=== PATIENT | male | born 1985 | race Caucasian/White ===

== ENCOUNTER → 2016-11-17 | Outpatient (CLI) | payer OTHER ==
--- NOTE | 2016-11-18 06:13 | PAP/PSG TECHNICIAN REPORT ---
[facility] Invasive Cardiovascular Technologist Polysomnogram Report Study name: None Report date: 11/18/2016 Study date: 11/17/2016 Referring Physician: DR. DONA SPENCER Name: CATIE LEE Interpreting Physician: Avi Lane D.O. Date of : 1985 Invasive Cardiovascular Technologist: RAHEEL Saucedo. Sex: Male Age: 31 StudyType: PSG Weight: 141 lbs Height: 31 years, Height 5' 6.5" Neck Circum: BMI: 22.41 Medications: [id number], Asmanex 220mcg/inh, ProAir HFA 108mcg/act, Zoloft 100mg Patient History Study started on room air with no ETCO2 monitoring in room #7. 31 yr old male here tonight for a diagnostic psg. His girlfriend told him that he snores and that he wakes up gasping. He does feel tired during the day and never really feels rested despite having an ESS of 8/24. He sometimes has difficulty falling asleep and stated that he feels as though he wakes up frequently throughout the night. No family history of INGRID. He had his tonsils and adenoids removed at age 5 because of recurrent infection. His neck circ=15inches. Parameters Monitored NPSG: E1-M2, E2-M1, Fp1-M2, Fp2-M1, F3-M2, F4-M2, F4-M1, C3-M2, C4-M2, C4-M1, O1-M2, O2-M2, O2-M1, T3-M2, T4-M1, P3-M2, P4-M1, CHIN1, CHIN2, HR, EKG, Legs, PFLOW, SNOR, FLOW, CFLOW, Tidal Volume, THOR, ABDO, SpO2, PLTH, CPRESS, ETCO2 Wave, ETCO2, pH Sleep Architecture Sleep Stages Time at Lights Off 10:27:29 PM STAGES Time (min.) TST (%) Time at Lights On 5:31:29 AM Wake 180.0 -- Total Recording Time (TRT) 424.00 min. N1 13.0 5 Total Sleep Period (TSP) 284.0 min. N2 137.0 56 Total Sleep Time (TST) 244.0min. N3 64.0 26 Awake Time 180.0 min. REM 30.0 12 Wake after Sleep Onset 44.0 min. Sleep Efficiency (SE) 58 % Sleep Onset Latency (HIGINIO) 136.0 min. Number of Stage 1 Shifts None Awakenings 7 Stage Changes 47 Number of REM periods 4 REM 30.0 12 REM Latency 109.5 min. NREM 214.0 88 Body Position Analysis Supine Right Left Side Prone Vertical Total Sleep Time (min.) 267.0 100.5 0.0 100.50 0.0 0.0 Total Sleep Time (%) 59% 41% 0% 41 0% N/A% Total Sleep Time REM (min.) 20.0 10.0 0.0 None 0.0 0.0 Total Sleep Time NREM (min.) 123.5 90.5 0.0 None 0.0 0.0 Intermittent Wake (min.) 123.5 56.5 0.0 None 0.0 0.0 Total Sleep Period (%) 57% None None None None None Arousals Myoclonus (PLM) * Events Count Index Events Count Index Spontaneous 14 3 Events Awake (PLMW) 63 21.0 Respiratory 1 0.2 Events Asleep w/ Arousal (PLMA) 3 0.7 PLM 3 1 Events Asleep w/o Arousal (PLMS) 15 3.7 Snoring 5 1 Total Asleep 18 4.4 Total 23 6 Total 81 11 Respiratory Analysis * CA OA MA CH H RERA Total Count 1 2 0 0 11 1 14 Index 0.2 0.5 0.0 0 2.7 0 3.7 Mean Duration 23.1 24.0 0.0 0.00 35.8 16.9 32.1 Longest Duration 23.1 29.8 0.0 0.00 0.0 16.9 61.2 Respiratory Event Summary Total Supine ~Supine Right Left Prone REM NREM Apneas Count 3 1 2 2 N/A N/A 0 3 Index 0.7 0 1 1.2 N/A N/A 0 1 Hypopneas (4% Desat) Count 11 11 0 0 N/A N/A 10 1 Index 2.7 4.6 0 0.0 N/A N/A 20.0 0.3 Apneas & All Hypopneas Count 14 12 2 2 N/A N/A 10 4 Index 3.4 5 1 1 N/A N/A 20.0 1.1 Respiratory Events (Glass Blowing Instructor+All Hyp+RERA) Count 14 13 2 2 N/A N/A 10 4 Index 3.7 5 1 1.2 N/A N/A 22.0 1.1 Respiratory Related Arousal Count 1 13 0 0 N/A N/A 1 0 Index 0.2 0 0 0 N/A N/A 2 0 Snoring Analysis Supine Right Left Prone REM NREM Total Snore duration 7.2 min Snores count 209 105 N/A N/A 13 301 314 Snore mean duration 1.4 Sec Snores index 87 63 N/A N/A 26.0 84.4 77.2 TST with snoring (%) 2.9% Desaturation Event Summary: Minimum %SpO2 Event Count Mean/Min/Max Duration(sec.) Desaturation Index % Time In Bed > 90 19 36.3 / 9.5 / 57.3 3.2 84.9 86 - 90 4 26.6 / 9.5 / 47.5 3.8 15.1 81 - 85 0 N/A 0.0 0.0 76 - 80 0 N/A 0.0 0.0 71 - 75 0 N/A 0.0 0.0 66 - 70 0 N/A 0.0 0.0 61 - 65 0 N/A 0.0 0.0 56 - 60 0 N/A 0.0 0.0 51 - 55 0 N/A 0.0 0.0 < 50 0 N/A 0.0 0.0 Total REM NREM Awake <50% 0.0 min. 0.0 min. 0.0 min. 0.0 min. 51 - 60% 0.0 min. 0.0 min. 0.0 min. 0.0 min. 61 - 70% 0.0 min. 0.0 min. 0.0 min. 0.0 min. 71 - 80% 0.0 min. 0.0 min. 0.0 min. 0.0 min. 81 - 90% 63.5 min. 19.8 min. 34.7 min. 9.0 min. 91 - 100% 357.5 min. 10.2 min. 179.2 min. 168.1 min. Average 92 90 91 93 Minimum SpO2 86 86 87 88 Desaturation Event Index 2.7 16.0 1.7 1.7 # Desat. Events below 89% 9 6 2 1 Time(%) with Saturation below 89% 1.4 1.0 0.3 0.1 Time(min.) with Saturation below 89% 5.7 4.0 1.4 0.2 Time (mins) REM (mins) NREM (mins) % of TST SpO2 Below 90% 13 8 N5 8.0 SpO2 Below 88% 5 0 0 1 Heart Rate Analysis Min (bpm) Max (bpm) Average (bpm) Awake 50 127 62 NREM 48 127 57 REM 54 87 65 Overall 48 127 58 Supplemental O2 Values Minimum O2 level: None Value Start Time End Time Invasive Cardiovascular Technologist Comments Mr. Lee slept in the right, left and supine positions. No cardiac arrhythmia noted. Some leg movements were noted. No bruxism noted. Snoring was noted and scored as a 2 on a scale of 1 through 5. (0=no snoring, 5=snoring loud enough to be heard through a closed door or down the [address]) He did not use the restroom during the night. He stated that he slept about the same as when at home. The final report will be interpreted and signed by a sleep physician. The completed physician report will then be placed in the patient medical record. Therapy (cm H2O) 0 TIB (min.) 424.0 TST (min.) 244.0 Sleep Onset (min.) 136.0 REM Onset From Sleep (min.) 109.5 Sleep Efficiency % 58 Wakefulness (%) 42 Wakefulness (min.) 180.0 NREM 1 (%) 5 NREM 1 (min.) 13.0 NREM 2 (%) 56 NREM 2 (min.) 137.0 NREM 3 (%) 26 NREM 3 (min.) 64.0 REM (%) 12 REM (min.) 30.0 # Arousals 23 Arousal Index 6 # Snore 314 Snore Index 77.2 AHI 3.4 AHI Supine 5 AHI Non-Supine 1 NREM AHI 1.1 REM AHI 20.0 RDI 3.7 # Obstructive Apnea 2 # Central Apnea 1 # Mixed Apnea 0 # Hypopneas 11 RERAs 1 Total Respiratory Events 16 Time Below SpO2 89% (min.) 5.4 Mean NREM SpO2 (%) 91 Mean REM SpO2 (%) 90 Mean Sleep SpO2 (%) 91 Min NREM SpO2 (%) 87 Min REM SpO2 (%) 86 Position Supine (min.) 267.0 Position Non-supine (min.) 100.5 LM Index Sleep 4.4 LM Index NREM 4.5 LM Index REM 4.0 Mean Heart Rate (bpm) 58 Min Heart Rate (bpm) 48
--- NOTE | 2016-11-19 18:34 | POLYSOMNOGRAPH REPORT ---
SLEEP STUDY REPORT REFERRING DOCTOR: Dr. Elizabeth Alberto, [facility]. CLINICAL DATA: The patient is a 31-year-old male. His BMI is 22.41. He has a history of snoring, nocturnal gasping, and disturbed nocturnal sleep. His [place] score is 8. This study was in-lab diagnostic polysomnography. SLEEP ARCHITECTURE: The total sleep period was 284.0 minutes. Total sleep time was 244.0 minutes. The sleep onset latency was severely prolonged to 136 minutes. Sleep efficiency was at least moderately reduced to 58%. Wake after sleep onset was 44 minutes. Sleep consisted of stage N1 5%, stage N2 56%, stage N3 26%, and stage REM 12%. AROUSAL DATA: The patient had a total of 23 arousals including 14 spontaneous arousals, 1 respiratory arousal, 3 PLM arousals, and 5 snoring arousals. The arousal index was 6. PERIODIC LIMB MOVEMENTS DATA: The patient had a total of 18 periodic limb movements of sleep for an index of 4.4. The PLM arousal index was only 0.7. ELECTROCARDIOGRAM: The underlying rhythm was normal sinus. The minimum heart rate was 48. The mean heart rate was 58. No arrhythmias were noted. RESPIRATORY DATA: The patient had a total of 14 respiratory events including 1 central apnea, 2 obstructive apneas, and 11 hypopneas. The apnea-hypopnea index was normal at 3.4 events per hour. This would suggest no significant sleep apnea. OXIMETRY DATA: The patient had an average saturation of 92%. The minimum saturation was 86%. Most of the night the saturations were normal. He had a total of 5 minutes with saturations less than 88%. NURSING DIRECTOR'S NURSING DIRECTOR COMMENTS: The patient slept in the right side and supine positions. Some leg movements were noted. No bruxism noted. Snoring was noted and scored as a 2 on a scale of 1 through 5. The patient stated that he slept about the same as when at home. IMPRESSIONS: 1. Primary snoring. 2. Insomnia. COMMENTS: The patient had a moderate decrease in sleepy efficiency mainly related to a severely prolonged sleep latency of 136 minutes. He had decreased REM sleep. This could be related to the fact he takes Zoloft. The patient had few limb movements. He did not have any significant sleep apnea in light of the normal apnea-hypopnea index. He had modest snoring. He obviously is not a candidate for definitive treatment of sleep apnea in light of the fact he does not have significant sleep apnea. RECOMMENDATIONS: 1. If the snoring is a major issue for him, in light of the lack of sleep apnea, consideration could be given to an ENT evaluation. 2. If the patient complains of insomnia, collecting sleep logs for approximately 2 weeks may be helpful. 3. The patient does take Zoloft. This would imply that he might have either depression or anxiety. It is unclear what role these problems may play with his sleep symptoms. 4. The patient is advised to avoid sleeping in the supine position. Typically, there was increased respiratory events and snoring when supine. 5. The patient should be advised of the appropriate principles of sleep hygiene including allowing approximately 7.5-8 hours of sleep time and having a regular sleep- wake schedule. MARGOTD
== END | disposition home or self-care (01) ==
LOC: C.NEUR 20:00
PROVIDERS: ATTEND Internal Medicine
DX: F32.9 Major depressive disorder, single episode, unspecified (principal); R06.83 Snoring